=== PATIENT | male | born 1985 ===

== ENCOUNTER 2018-08-28 10:12 | Emergency (ER) | payer OTHER ==
[2018-08-28 10:25] VITALS: BP 120/71; PULSE 68; RESP 18; TEMP 98.3; O2SAT 97; BMI 44.4
[2018-08-28 11:42] LABS: BASO # 0.1 K/uL (0.0-0.2); EOS # 0.2 K/uL (0.0-0.7); EOS % 3.2 % (0.0-4.0); HEMOGLOBIN 15.5 g/dL (12.0-18.0); LYMPH # 2.3 K/uL (1.0-4.3); LYMPH % 34.1 % (20.0-40.0); MEAN CELL VOLUME 87.4 fl (80.0-94.0); MEAN CORPUSCULAR HEMOGLOBIN 30.8 pg (27.0-31.0); MEAN CORPUSCULAR HGB CONC 35.2 g/dL (33.0-37.0); MEAN PLATELET VOLUME 7.8 fl (7.2-11.7); MONO # 0.7 K/uL (0.0-0.8); MONO % 10.6 % (0.0-10.0); NEUT # 3.5 K/uL (1.8-7.0); NEUT % 51.1 % (50.0-75.0); NRBC % 0.1 % (0.0-0.0); RBC 5.03 Mil/uL (4.40-5.90); RED CELL DISTRIBUTION WIDTH 12.9 % (11.5-14.5); WHITE BLOOD COUNT 6.7 K/uL (4.8-10.8)
[2018-08-28 12:01] LABS: BLOOD UREA NITROGEN 17 mg/dl (9-20); GFR NON-AFRICAN AMERICAN > 60
--- NOTE | 2018-08-28 12:51 | ED PDOC ---
Upper Extremity Pain/Injury Time Seen by Provider: 08/28/18 10:28 Chief Complaint (Nursing): Weakness/Neurological Deficit Chief Complaint (Provider): Weakness/Neurological Deficit History Per: Patient, Physiotherapy Aide (#[id number] ) History/Exam Limitations: no limitations Onset/Duration Of Symptoms: Persistent (x 2 months) Additional Complaint(s): 33 year old male presents to the ED for evaluation of 2 months of numbness and tingling to his finger tips bilaterally. Patient states it is worse on third digits bilaterally and associated with some neck pain. He works as in construction and frequently uses a jackhammer. Patient reports that he came to the hospital because his delivered yesterday and decided to be evaluated while he was here. Denies weakness to the hands or arms, numbness to the other parts of the arms and trauma. PMD: none provided Past Medical History Reviewed: Historical Data, Nursing Documentation, Vital Signs Vital Signs: Last Vital Signs Temp 98.3 F 08/28/18 10:24 Pulse 68 08/28/18 10:24 Resp 18 08/28/18 10:24 BP 120/71 08/28/18 10:24 Pulse Ox 97 08/28/18 10:24 Primary Care Provider: FAMILY PROVIDER,NO - Medical History PMH: No Chronic Diseases - Surgical History Surgical History: No Surg Hx - Family History Family History: States: Unknown Family Hx - Immunization History Hx Tetanus Toxoid Vaccination: No Hx Influenza Vaccination: No Hx Pneumococcal Vaccination: No - Home Medications Home Medications: Ambulatory Orders Medication Instructions Recorded Acetaminophen [Tylenol] 325 mg PO Q6 PRN #30 tab 02/03/18 Naproxen [Naprosyn] 500 mg PO BID #20 tab 02/03/18 - Allergies Allergies/Adverse Reactions: Allergies Allergy/AdvReac Type Severity Reaction Status Date / Time No Known Allergies Allergy Verified 02/03/18 16:57 Review of Systems ROS Statement: Except As Marked, All Systems Reviewed And Found Negative Musculoskeletal: Positive for: Other (numbness and tingling to bilateral fingertips) Physical Exam - Reviewed Nursing Documentation Reviewed: Yes Vital Signs Reviewed: Yes - Physical Exam Appears: Positive for: Non-toxic, No Acute Distress Head Exam: Positive for: ATRAUMATIC, NORMAL INSPECTION, NORMOCEPHALIC Skin: Positive for: Normal Color, Warm, Dry Eye Exam: Positive for: EOMI, Normal appearance, PERRL Neck: Positive for: Normal, Painless ROM, Supple Cardiovascular/Chest: Positive for: Regular Rate, Rhythm. Negative for: Murmur Respiratory: Positive for: Normal Breath Sounds. Negative for: Respiratory Distress Gastrointestinal/Abdominal: Positive for: Normal Exam, Soft. Negative for: Tenderness Back: Positive for: Normal Inspection. Negative for: L CVA Tenderness, R CVA Tenderness, Vertebral Tenderness Extremity: Positive for: Normal ROM (full ROM to shoulder, elbow, wrist and fingers bilaterally). Negative for: Deformity Neurological/Psych: Positive for: Awake, Alert, Normal Tone, Symmetric/Intact Strength, Oriented (x 3), administrative specialist II-XII (intact). Negative for: Motor/Sensory Deficits, Other (2 point discrimination in all finger tips) - Laboratory Results Result Diagrams: 08/28/18 11:20 08/28/18 11:20 - ECG O2 Sat by Pulse Oximetry: 97 (RA) Pulse Ox Interpretation: Normal Medical Decision Making Medical Decision Makin:21 MDM: most likely nerve damage due to chronic use of construction equipment X-ray to rule out neck injury Basic labs Reassess Scribe Attestation: Documented by Cristina Calles, acting as a scribe for Cookie Jimenez MD. Provider Scribe Attestation: All medical record entries made by the Scribe were at my direction and personally dictated by me. I have reviewed the chart and agree that the record accurately reflects my personal performance of the history, physical exam, me dical decision making, and the department course for this patient. I have also personally directed, reviewed, and agree with the discharge instructions and disposition. Disposition - Clinical Impression Clinical Impression: Numbness and tingling in both hands - Disposition Referrals: [facility] [Outside] Pradeep Goodrich MD [Medical Doctor] - FAMILY PROVIDER,NO [Primary Care Provider] - Disposition: Routine/Home Disposition Time: 12:50 Condition: STABLE Instructions: Paresthesias (DC), Hand Numbness Forms: [facility] [employer] [facility] (Albanian), [facility] (Swedish) Print Language: SPA
--- NOTE | 2018-08-28 14:54 | RAD ---
Date of service: 08/28/2018 PROCEDURE: Cervical Spine Radiographs. HISTORY: Pain. COMPARISON: None available. TECHNIQUE: 3 views obtained. FINDINGS: BONES: Shoulders obscure mid inferior cervical spine with C6-C7 and T1 obscured completely. No fracture or spondylolisthesis is appreciated above this level with normal upper and mid cervical curvature preserved. Widely patent bilateral neural foramina by bone contour. DISC SPACES: Normal. SOFT TISSUES: Unremarkable down to C7 level. OTHER FINDINGS: None. IMPRESSION: No fracture or spondylolisthesis identified from C1 to C6. Detailed evaluation of C6, C7 and T1 are obscured by the shoulders skeletal and soft tissue overlap, thereby limiting evaluation of these levels.
== END 2018-08-28 13:02 | disposition home or self-care (01) ==
LOC: SUPCPDRO 10:12 → H.ER 10:12
DX: R20.0 Anesthesia of skin (principal)